=== PATIENT | male | born 2000 | race Caucasian/White ===

== ENCOUNTER 2021-03-05 01:48 | Emergency (ER) | payer BC ==
[2021-03-05 01:55] VITALS: BP 125/66; PULSE 53; TEMP 98.2; BMI 21.5
[2021-03-05] MEDS ORDERED: KETOROLAC TROMETHAMINE 15 MG/ML VIAL IM ONE (02:18)
[2021-03-05] MEDS ORDERED: KETOROLAC TROMETHAMINE 30 MG/1 ML VIAL ONE (02:35)
[2021-03-05 03:11] LABS: BASO % 0.7 % (0-2.0); EOS % 2.4 % (0-4.5); HEMATOCRIT 40.5 % (35.4-49); HEMOGLOBIN 14.1 GM/dL (11.7-16.9); LYMPH % 42.6 % (8-40); MCH 30.3 pg (25.7-33.7); MCHC 34.9 g/dl (32.0-35.9); MEAN CELL VOLUME 86.8 fl (80-96); MEAN PLT VOLUME 9.6 fl (7.5-11.1); MONO % 12.7 % (3.8-10.2); NEUT % 41.6 % (42.8-82.8); PLATELET COUNT 143 10^3/uL (134-434); RBC 4.66 M/mm3 (4.00-5.60); RDW 13.3 % (11.9-15.9); WHITE BLOOD COUNT 5.2 K/mm3 (4.0-10.0)
[2021-03-05 03:23] LABS: CHLORIDE 106 mmol/L (98-107); SODIUM 140 mmol/L (136-145)
[2021-03-05 03:27] LABS: CALCIUM 8.8 mg/dL (8.5-10.1)
[2021-03-05 03:28] LABS: ANION GAP 4 MMOL/L (8-16); BLOOD UREA NITROGEN 15.6 mg/dL (7-18); CO2 30 mmol/L (21-32); GLUCOSE,RANDOM 87 mg/dL (74-106)
[2021-03-05 03:30] LABS: SGPT/ALT 26 U/L (13-61)
[2021-03-05 03:31] LABS: CREATININE 1.1 mg/dL (0.55-1.3); SGOT/AST 12 U/L (15-37)
[2021-03-05 03:32] LABS: BILIRUBIN,TOTAL 0.5 mg/dL (0.2-1); TOT PROT 6.6 g/dl (6.4-8.2)
[2021-03-05 03:33] LABS: ALK PHOS 105 U/L (45-117)
== END 2021-03-05 03:06 | disposition home or self-care (01) ==
LOC: FER 01:48
PROC: 3E0233Z Introduction of Anti-inflammatory into Muscle, Percutaneous Approach (ICD-10-PCS; principal; 2021-03-05)
DX: M94.0 Chondrocostal junction syndrome [Tietze] (principal); R00.1 Bradycardia, unspecified; B35.4 Tinea corporis
CPT/HCPCS: 36415; 71045-TC-FY; 80053; 82550; 82553; 84484; 85025; 93005; 99285-25